=== PATIENT | male | born 2000 | race Caucasian/White ===

== ENCOUNTER 2021-12-30 21:12 | Emergency (ER) | payer OTHER, SELFPAY ==
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
[2021-12-30 21:15] VITALS: BP 141/86; BP 180/94; PULSE 103; PULSE 96; RESP 16; TEMP 37.4; O2SAT 96; O2SAT 97; BMI 28.0
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
[2021-12-30 21:20] VITALS: RESP 16
[2021-12-30] MEDS: Ondansetron ODT 4 MG TAB.RAPDIS TRANSLINGU (21:31)
[2021-12-30] MEDS: Acetaminophen 325 MG TABLET 650 MG PO (21:31)
[2021-12-30 22:21] VITALS: BP 142/86; PULSE 114; RESP 16; TEMP 37.3; O2SAT 96
== END 2021-12-30 22:34 | disposition home or self-care (01) ==
PROVIDERS: Emergency Provider Emergency Medicine
DX: S01.01XA Laceration without foreign body of scalp, initial encounter (principal); G44.309 Post-traumatic headache, unspecified, not intractable; Y00.XXXA Assault by blunt object, initial encounter; Y93.9 Activity, unspecified; Y92.9 Unspecified place or not applicable; Y99.9 Unspecified external cause status
CPT/HCPCS: 12001; 70450; 99284

== ENCOUNTER 2022-01-06 14:49 | Emergency (ER) | payer OTHER, SELFPAY ==
[2022-01-06 14:55] VITALS: BP 114/76; PULSE 94; RESP 16; TEMP 36.5; O2SAT 97; BMI 28.0
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
== END 2022-01-06 15:19 | disposition home or self-care (01) ==
LOC: HO.ED 15:17
PROVIDERS: Emergency Provider Emergency Medicine
DX: Z48.02 Encounter for removal of sutures (principal); S01.81XD Laceration without foreign body of other part of head, subsequent encounter; W22.8XXD Striking against or struck by other objects, subsequent encounter
CPT/HCPCS: 99283

== ENCOUNTER 2022-06-26 14:20 | Emergency (ER) | payer OTHER, SELFPAY ==
[2022-06-26 14:23] VITALS: BP 120/72; PULSE 78; RESP 18; TEMP 37; O2SAT 97; BMI 27.9
[2022-06-26] MEDS: cephALEXin 500 MG CAPSULE PO (15:14)
[2022-06-26] MEDS: Lidocaine HCl 1 % MPF 2 ML VIAL INFILTRATI ×5 (15:15)
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
== END 2022-06-26 16:18 | disposition home or self-care (01) ==
PROVIDERS: Emergency Provider Student in an Organized Health Care Education/Training Program
DX: L02.415 Cutaneous abscess of right lower limb (principal); L03.115 Cellulitis of right lower limb; Z79.899 Other long term (current) drug therapy
CPT/HCPCS: 10060; 99282; 99283

== ENCOUNTER 2022-06-28 10:49 | Emergency (ER) | payer OTHER, SELFPAY ==
[2022-06-28 11:09] VITALS: BP 123/69; PULSE 90; RESP 18; TEMP 36.7; O2SAT 99; BMI 27.9
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
== END 2022-06-28 11:35 | disposition home or self-care (01) ==
PROVIDERS: Emergency Provider Emergency Medicine
DX: L02.415 Cutaneous abscess of right lower limb (principal); Z79.899 Other long term (current) drug therapy
CPT/HCPCS: 99282; 99283